=== PATIENT | male | born 1995 | race Caucasian/White ===

== ENCOUNTER 2019-06-30 14:15 | Inpatient (IN) | payer BC, SELFPAY ==
[~2019-06-30] VITALS: Ht 180.3 cm; Wt 90.9 kg
[2019-06-30] MEDS ORDERED: traZODone 50 MG TAB PO PRN (17:30)
[2019-06-30] MEDS ORDERED: NICOTINE 21MG/24HR 1 EA TRANSDERMAL TD PRN (17:30)
[2019-06-30] MEDS ORDERED: MAALOX 30 ML SUSP *UDC PO PRN (17:30)
[2019-06-30] MEDS ORDERED: MOM 30ML SUSPENSION UDC PO PRN (17:30)
[2019-06-30] MEDS ORDERED: IBUPROFEN 400 MG TAB PO PRN (17:30)
[2019-06-30 22:15] VITALS: BP 131/98
[2019-07-01 05:50] VITALS: BP 134/63
--- NOTE | 2019-07-01 09:42 | MHHPEPDOC ---
[facility] History & Physical History and Physical DATE OF ADMISSION: Jun 30, 2019 at 17:24 New Patient Rayshawn Salgado MRN: N/A Date of : N/A Date of Service: 07/01/2019 Chief Complaint "I don't know why I am here." History of Present Illness The patient is a 23-year-old man who was transferred from an outlying hospital. Reportedly had presented stating he had depression and SI becoming worse over the last 2 weeks. He was transferred from others several days. He had recently [facility] after being incarcerated for 4 years for statutory rape. Reportedly had increasing depression. The patient was met with where he reported that although he had had the depression symptoms he is feeling better being outside of the stressful situation. He reports he is feeling much improved after the supportive environment. He generally has been amenable and friendly on our unit. Review Of Systems Depression: As above. Anxiety: The patient denies any excessive worry associated with physical symptoms. They deny any experience of discreet panic in the past. Sonia: The patient denies any episodes of euphoria/dysphoria associated with decreased need for sleep, hedonism, talkatively or impulsivity lasting longer than 5 days. Psychotic: The patient denies any experiences of auditory or visual hallucinations. They deny any episodes of paranoia or delusional thinking in the past Trauma: The patient denies any traumatic events associated with nightmares or intrusive thoughts. Borderline: The patient screens negative for borderline personality at this junction. Past Psychiatric History Has a distant history of SA. No history of suicide attempts. On no current medications. Allergies Please see below. Family Psychiatric History The patient denies/is unaware any history of mental health history including addictions and suicide. Social History The patient is a currently never man who resides alone in a rented home. Has 1 child who lives with the mother. Has an order of protection against him secondary to the reported charges above. Has graduated associate's degree. Has no income at this time. Legal history as above, currently on parole, parents , close relationship with mother, poor relationship with father. Reports normal childhood without trauma, close with his siblings. Substance Abuse History Patient does not endorse any significant addiction history. Medical History Patient has no significant past medical history. Mental Status Examination General: Well dressed with good hygiene Speech: Spontaneous and fluid Thought processes: Linear and logical MSK: Smooth and coordinated gait, no signs of tremors or involuntary orofacial movements Thought content: Future orientated Abstract reasoning, and computation: Intact Description of associations: Intact Description of abnormal or psychotic thoughts: Denies any suicidal or homicidal ideation. Denies any auditory or visual hallucinations. Does not appear to be responding to internal stimuli. Does not appear to be endorsing any bizarre or paranoid ideation. Judgment: fair Insight: fair Orientation: Alert and orientated 3 Cognition: Grossly normal Recent and remote memory: Intact Attention span and concentration: Intact Fund of knowledge: Adequate Mood: "okay" Affect: Euthymic with a full range Diagnoses Adjustment disorder with disruption of mood and conduct. Assessment and Plan Patient is a 23-year-old man with a legal history, presents after some adjustment after leaving. He resolves well without much treatment suggesting adjustment disorder as the primary issue. He has a good support structure. The patient at the time of discharge did not meet criteria for involuntary admission/extension due to having a normal mental status exam, fair insight into the situation, They are engaged in the discharge process, as well as being friendly and amenable in behavioral control and havent been engaging in any observed concerning behavior or ideation recently. They decline voluntary extension/admission at this time and must be discharged in good anne, as Im unable to make a case for holding the patient against their will. They may have historical risk factors of admissions and other interactions with psychiatry however, those are not modifiable from a clinical perspective. The patient will need to be discharged in good anne." this would be in the assessment/plan section (consult) and/or the discharge assessment on the discharge note. Disposition Same day discharged. Problem List 1. Risk for suicide. 2. Ineffective coping. Initial Treatment Plan 1. Patient was admitted on a 9.37 legal status. 2. Complete history was obtained. 3. With patients permission, family will be contacted and database will be expanded. 4. Patients medication regimen will be reviewed and changed accordingly. 5. Patient will be provided with protected environment. 6. Patient will be treated with individual, group, and milieu therapies. 7. Patient will receive supportive psych-education. 8. Discharge planning will commence immediately. 9. Outpatient follow-up treatment will be strongly recommended. 10. The initial treatment plan will focus initially on: Estimated Length Of Stay 1 day. Time Spent 70 minutes. Sunday Vital Signs Vital Signs Date Time Temp Pulse Resp B/P (MAP) Pulse Ox O2 Delivery O2 Flow Rate FiO2 07/01/19 05:50 99.2 77 18 134/63 (86) Room Air 06/30/19 22:15 97 Medications Scheduled PRN Nicotine (Nicotine Patch) 21 Mg Patch.td24, 1 PATCH TD DAILY PRN for smoking cessation Allergies Coded Allergies: Penicillins (Verified Allergy, Unknown, 06/30/19) RONY LEE DO Jul 01, 2019 09:42
--- NOTE | 2019-07-01 09:43 | MHDSPDOC ---
[facility] Discharge Summary Discharge Summary DATE OF ADMISSION: Jun 30, 2019 at 17:24 DATE OF DISCHARGE: 07/01/19 Please see h/p for same day discharge Vital Signs/I&Os Vital Signs Date Time Temp Pulse Resp B/P (MAP) Pulse Ox O2 Delivery O2 Flow Rate FiO2 07/01/19 05:50 99.2 77 18 134/63 (86) Room Air 06/30/19 22:15 97 Medications Scheduled PRN Nicotine (Nicotine Patch) 21 Mg Patch.td24, 1 PATCH TD DAILY PRN for smoking cessation for 30 Days, #30 Allergies Coded Allergies: Penicillins (Verified Allergy, Unknown, 06/30/19) RONY LEE DO Jul 01, 2019 09:43
[2019-07-01] MEDS ORDERED: NICO21PAT TD (09:55)
== END 2019-07-01 14:35 | disposition home or self-care (01) | DRG 755 ==
LOC: M ED 14:15 → M ED INP 17:24 → M PSY 22:15
PROVIDERS: ADMIT Psychiatry & Neurology Psychiatry; ATTEND Psychiatry & Neurology Addiction Medicine
DX: F43.25 Adjustment disorder with mixed disturbance of emotions and conduct (principal); Z88.0 Allergy status to penicillin; Z65.2 Problems related to release from prison